=== PATIENT | female | born 1995 | race Two or more races ===

== ENCOUNTER 2021-07-06 10:50 | Emergency (ER) | payer OTHER ==
[~2021-07-06] VITALS: Ht 157.5 cm; Wt 86.2 kg
[2021-07-06 11:39] LABS: Basophils # (auto) 0 10 ^3/uL (0-0.2); Basophils % (auto) 0.3 % (0.0-2.0); Eosinophils # (auto) 0 10 ^3/uL (0-0.8); Eosinophils % (auto) 0.3 % (0.0-7.0); Hematocrit 40.6 % (36.0-46.0); Hemoglobin 13.5 g/dL (12.2-16.2); Lymphocytes # (auto) 2.2 10 ^3/uL (0.4-5.4); Lymphocytes % (auto) 18.2 % (10.0-50.0); Mean Corpuscular Hemoglobin 30.9 pg (28.0-32.0); Mean Corpuscular Hgb Conc. 33.2 g/dL (32.0-36.0); Monocytes # (auto) 0.6 10 ^3/uL (0-1.3); Monocytes % (auto) 4.8 % (0.0-12.0); Neutrophils # (auto) 9.4 10 ^3/uL (1.6-8.6); Neutrophils % (auto) 76.4 % (37.0-80.0); Red Blood Cells 4.36 10^6/uL (4.0-5.20); Red Cell Distribution Width 13.5 % (11.8-14.3); White Blood Cell 12.3 10^3/uL (4.4-10.8)
[2021-07-06] MEDS: ONDANSETRON HCL 4 MG/2 ML VIAL IV ONE (11:44)
[2021-07-06] MEDS: SODIUM CHLORIDE 0.9% 1,000 ML IV ONE (11:44)
[2021-07-06] MEDS: MORPHINE SULFATE 4 MG/ML SYR/VIAL IV ONE ×2 (11:44→13:31)
[2021-07-06 12:17] LABS: Albumin 3.4 g/dL (3.4-5.0); Calcium 8.9 mg/dL (8.5-10.1); Potassium 3.4 mmol/L (3.5-5.1)
[2021-07-06 12:19] LABS: BUN/Creatinine Ratio 12.1; Bilirubin, Total 0.4 mg/dL (0.2-1.0); Total Protein 7.7 g/dL (6.4-8.2)
[2021-07-06 14:11] LABS: Urine Bacteria NONE SEEN /hpf (None Seen); Urine Blood Negative /uL (Negative); Urine Hyaline Cast FEW /lpf (0 - 2); Urine Mucus FEW (None Seen); Urine Specific Gravity 1.013 (1.001-1.035); Urine WBC 2 /hpf (0 - 5)
[2021-07-06 15:11] VITALS: BP 106/64
== END 2021-07-06 15:23 | disposition home or self-care (01) ==
LOC: ER 10:50
DX: O26.891 Other specified pregnancy related conditions, first trimester (principal); R10.11 Right upper quadrant pain; Z3A.09 9 weeks gestation of pregnancy
CPT/HCPCS: 36415; 76705; 80053; 81001; 82150; 83690; 84702; 85025; 96361; 96374; 96375; 96376; 99285; J2270; J2405; J7030

== ENCOUNTER 2021-07-06 22:44 | Emergency (ER) | payer OTHER ==
[~2021-07-06] VITALS: Ht 157.5 cm; Wt 86.2 kg
[2021-07-07 01:11] LABS: Basophils # (auto) 0 10 ^3/uL (0-0.2); Basophils % (auto) 0.1 % (0.0-2.0); Eosinophils # (auto) 0 10 ^3/uL (0-0.8); Hemoglobin 12.6 g/dL (12.2-16.2); Lymphocytes # (auto) 0.6 10 ^3/uL (0.4-5.4); Lymphocytes % (auto) 3.4 % (10.0-50.0); Monocytes # (auto) 0.4 10 ^3/uL (0-1.3); Monocytes % (auto) 2.5 % (0.0-12.0); Neutrophils # (auto) 16.1 10 ^3/uL (1.6-8.6); Red Blood Cells 4.03 10^6/uL (4.0-5.20); White Blood Cell 17.2 10^3/uL (4.4-10.8)
[2021-07-07 01:12] LABS: Hematocrit 37.5 % (36.0-46.0); Mean Corpuscular Hemoglobin 31.3 pg (28.0-32.0); Mean Corpuscular Hgb Conc. 33.6 g/dL (32.0-36.0); Mean Corpuscular Volume 93.1 fL (80.0-100.0); Red Cell Distribution Width 13.2 % (11.8-14.3)
[2021-07-07 01:13] LABS: Urine Bacteria NONE SEEN /hpf (None Seen); Urine Blood Negative /uL (Negative); Urine Mucus MODERATE (None Seen); Urine Specific Gravity 1.031 (1.001-1.035); Urine WBC 7 /hpf (0 - 5)
[2021-07-07 01:40] LABS: Albumin 3.3 g/dL (3.4-5.0); Calcium 8.5 mg/dL (8.5-10.1); Magnesium 2.6 mg/dL (1.6-2.6); Potassium 3.6 mmol/L (3.5-5.1)
[2021-07-07] MEDS ORDERED: FAMOTIDINE (10MG/ML) 2ML VL IV ONE (01:45)
[2021-07-07] MEDS ORDERED: LIDOCAINE VISCOUS 2% 15ML UD PO ONE (01:45)
[2021-07-07] MEDS ORDERED: SUCRALFATE 1 GM/10 ML ORAL SUSP PO ONE (01:45)
[2021-07-07] MEDS ORDERED: SODIUM CHLORIDE 0.9% 1,000 ML IV ONE (01:45)
[2021-07-07 01:47] LABS: Bilirubin, Total 0.5 mg/dL (0.2-1.0); Total Protein 7.5 g/dL (6.4-8.2)
[2021-07-07] MEDS ORDERED: ACETAMINOPHEN 500 MG TAB PO ONE (05:15)
[2021-07-07] MEDS ORDERED: cefTRIAXone 1GM/50ML D5W 50 ML IV ONE ×2 (05:45→09:15)
[2021-07-07 09:15] VITALS: BP 122/68
== END 2021-07-07 09:07 | disposition home or self-care (01) ==
LOC: ER 22:44
DX: O23.41 Unspecified infection of urinary tract in pregnancy, first trimester (principal); Z3A.01 Less than 8 weeks gestation of pregnancy
CPT/HCPCS: 36415; 76700; 76801; 80053; 81001; 81025; 82150; 83605; 83690; 83735; 84484; 84702; 85025; 87086; 93005; 96361; 96365; 96375; 99285; J0696; J3490; J7030

== ENCOUNTER 2021-07-21 03:37 | Emergency (ER) | payer OTHER ==
[~2021-07-21] VITALS: Ht 157.5 cm; Wt 86.2 kg
[2021-07-21 03:42] VITALS: BP 147/93
[2021-07-21 05:02] LABS: Basophils # (auto) 0 10 ^3/uL (0-0.2); Basophils % (auto) 0.4 % (0.0-2.0); Eosinophils # (auto) 0.1 10 ^3/uL (0-0.8); Hematocrit 37.8 % (36.0-46.0); Hemoglobin 12.9 g/dL (12.2-16.2); Lymphocytes # (auto) 2.4 10 ^3/uL (0.4-5.4); Lymphocytes % (auto) 23.7 % (10.0-50.0); Mean Corpuscular Hemoglobin 31.4 pg (28.0-32.0); Mean Corpuscular Volume 92.2 fL (80.0-100.0); Monocytes # (auto) 0.6 10 ^3/uL (0-1.3); Monocytes % (auto) 5.7 % (0.0-12.0); Neutrophils % (auto) 69.2 % (37.0-80.0); Red Blood Cells 4.11 10^6/uL (4.0-5.20); Red Cell Distribution Width 12.9 % (11.8-14.3); White Blood Cell 10.1 10^3/uL (4.4-10.8)
[2021-07-21 05:19] LABS: INR 0.97 (0.9-1.15); Partial Thromboplastin Time 25.6 sec (23.6-33.0)
[2021-07-21 05:20] LABS: Albumin 3.4 g/dL (3.4-5.0); Calcium 9.5 mg/dL (8.5-10.1)
[2021-07-21 05:22] LABS: BUN/Creatinine Ratio 26.7
[2021-07-21 05:25] LABS: Bilirubin, Total 0.4 mg/dL (0.2-1.0)
[2021-07-21 05:57] LABS: Urine Bacteria FEW /hpf (None Seen); Urine Blood 3+ /uL (Negative); Urine Specific Gravity 1.006 (1.001-1.035); Urine WBC 3 /hpf (0 - 5)
== END 2021-07-21 13:00 | disposition home or self-care (01) ==
LOC: ER 03:37
DX: O46.91 Antepartum hemorrhage, unspecified, first trimester (principal); Z3A.11 11 weeks gestation of pregnancy
CPT/HCPCS: 36415; 76801; 80053; 81001; 84702; 85025; 85610; 85730; 86850; 86900; 86901

== ENCOUNTER 2021-07-30 05:01 | Emergency (ER) | payer OTHER ==
[~2021-07-30] VITALS: Ht 157.5 cm; Wt 86.2 kg
[2021-07-30 06:22] LABS: Basophils # (auto) 0 10 ^3/uL (0-0.2); Basophils % (auto) 0.3 % (0.0-2.0); Eosinophils # (auto) 0.1 10 ^3/uL (0-0.8); Eosinophils % (auto) 0.7 % (0.0-7.0); Hematocrit 37.8 % (36.0-46.0); Hemoglobin 12.9 g/dL (12.2-16.2); Lymphocytes # (auto) 2.5 10 ^3/uL (0.4-5.4); Lymphocytes % (auto) 24.2 % (10.0-50.0); Mean Corpuscular Hemoglobin 31.6 pg (28.0-32.0); Mean Corpuscular Volume 92.7 fL (80.0-100.0); Monocytes # (auto) 0.3 10 ^3/uL (0-1.3); Monocytes % (auto) 3.2 % (0.0-12.0); Neutrophils # (auto) 7.4 10 ^3/uL (1.6-8.6); Neutrophils % (auto) 71.6 % (37.0-80.0); Nucleated Red Blood Cells % 0.2 %; Red Blood Cells 4.08 10^6/uL (4.0-5.20); White Blood Cell 10.3 10^3/uL (4.4-10.8)
[2021-07-30 06:31] LABS: Albumin 3.3 g/dL (3.4-5.0); Calcium 8.9 mg/dL (8.5-10.1); Potassium 3.8 mmol/L (3.5-5.1)
[2021-07-30 06:35] LABS: INR 0.97 (0.9-1.15); Partial Thromboplastin Time 22.8 sec (23.6-33.0)
[2021-07-30 06:36] LABS: BUN/Creatinine Ratio 15.4; Bilirubin, Total 0.4 mg/dL (0.2-1.0); Total Protein 7.3 g/dL (6.4-8.2)
[2021-07-30] MEDS ORDERED: SODIUM CHLORIDE 0.9% 500 ML IVB ONE (07:30)
[2021-07-30] MEDS ORDERED: SODIUM CHLORIDE 0.9% 1,000 ML IV ONE (07:30)
[2021-07-30 09:06] VITALS: BP 111/77
[2021-07-30 09:20] LABS: Urine Bacteria FEW /hpf (None Seen); Urine Blood 3+ /uL (Negative); Urine Mucus MODERATE (None Seen); Urine Specific Gravity 1.023 (1.001-1.035); Urine Sperm PRESENT /hpf (None Seen); Urine WBC 33 /hpf (0 - 5)
== END 2021-07-30 11:10 | disposition home or self-care (01) ==
LOC: ER 05:01
DX: O23.41 Unspecified infection of urinary tract in pregnancy, first trimester (principal); O46.91 Antepartum hemorrhage, unspecified, first trimester; Z3A.12 12 weeks gestation of pregnancy
CPT/HCPCS: 36415; 76801; 80053; 81001; 84702; 85025; 85610; 85730; 96360; 96361; 99284; J7030; J7040

== ENCOUNTER → 2024-04-03 | Outpatient (CLI) | payer MEDICAID ==
[2024-04-03 07:15] LABS: Basophils # (auto) 0 10 ^3/uL (0-0.2); Basophils % (auto) 0.4 % (0.0-2.0); Eosinophils # (auto) 0.1 10 ^3/uL (0-0.8); Eosinophils % (auto) 1.4 % (0.0-7.0); Hematocrit 40.5 % (36.0-46.0); Lymphocytes # (auto) 2.4 10 ^3/uL (0.4-5.4); Mean Corpuscular Hemoglobin 32.1 pg (28.0-32.0); Mean Corpuscular Hgb Conc. 34.5 g/dL (32.0-36.0); Monocytes # (auto) 0.4 10 ^3/uL (0-1.3); Monocytes % (auto) 5.9 % (0.0-12.0); Neutrophils # (auto) 4.2 10 ^3/uL (1.6-8.6); Neutrophils % (auto) 58.3 % (37.0-80.0); Nucleated Red Blood Cells % 0.1 %; Platelet Count (auto) 247 10^3/uL (140-450); Red Blood Cells 4.35 10^6/uL (4.0-5.20); Red Cell Distribution Width 14.8 % (11.8-14.3); White Blood Cell 7.1 10^3/uL (4.4-10.8)
[2024-04-03 07:37] LABS: Alanine Aminotransferase 71 U/L (7-40); Albumin 4.1 g/dL (3.2-4.8); Alkaline Phosphatase 87 U/L (46-116); Anion Gap 7 (5-15); Aspartate Aminotransferase 20 U/L (13-40); Blood Urea Nitrogen 11 mg/dL (9-23); Calcium 9.4 mg/dL (8.7-10.4); Carbon Dioxide 25 mmol/L (20-30); Chloride 106 mmol/L (98-107); Cholesterol 166 mg/dL (< 200); Glucose 81 mg/dL (74-106); HDL Cholesterol 35 mg/dL (40-59); LDL Cholesterol 117 mg/dL (< 100); Potassium 3.9 mmol/L (3.5-5.1); Sodium 138 mmol/L (136-145); Triglycerides 102 mg/dL (< 150)
[2024-04-03 07:38] LABS: Bilirubin, Total 0.6 mg/dL (0.2-1.0); Total Protein 6.6 g/dL (5.7-8.2)
== END | disposition home or self-care (01) ==
LOC: LAB 06:40
PROVIDERS: ATTEND Nurse Practitioner Family
DX: I10 Essential (primary) hypertension (principal); E66.9 Obesity, unspecified
CPT/HCPCS: 36415; 80053; 80061; 82306; 84443; 85025

== ENCOUNTER 2024-06-08 22:54 | Inpatient (IN) | payer MEDICAID ==
[~2024-06-08] VITALS: Ht 154.9 cm; Wt 84.8 kg
--- NOTE | 2024-06-08 23:11 | ED.PDOC ---
History of Present Illness HPI Comments 29 y/o F, with a Hx of cholelithiasis and obesity, presents with c/o non- radiating, upper abdominal pain, nausea, and vomiting, today. Patient reports on having symptoms, intermittently for 1 month, with most recent onset taking place at around 2000, this evening. Patient comments on pain having no relief as she had in the past with heat pack use and after vomiting for most current onset of symptoms. Patient also informs on being Dx with cholelithiasis when evaluated for pain in the past, with no further endorsement of relevant or pertinent Hx. Patient reports also no recent stress, injuries, sick contact, travel, spoiled food, or substance use/exposure. Denies having any hematemesis, diarrhea, constipation, urinary symptoms, fever, chills, or other associated symptoms or modifiers at this time. 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 Family History Family History: Unknown Social History Smoker: Non-Smoker Alcohol: Occasionally Drugs: Denies Drug Use Lives In: Home Constitutional: denies: chills, diaphoresis, fatigue, fever, malaise, sweats, weakness, others EENTM: denies: blurred vision, double vision, ear bleeding, ear discharge, ear drainage, ear pain, ear ringing, eye pain, eye redness, hearing loss, mouth pain, mouth swelling, nasal discharge, nose bleeding, nose congestion, nose pain, photophobia, tearing, throat pain, throat swelling, voice changes, others Respiratory: denies: cough, hemoptysis, orthopnea, SOB at rest, shortness of breath, SOB with excertion, stridor, wheezing, others Cardiovascular: denies: chest pain, dizzy spells, diaphoresis, Dyspnea on exertion, edema, irregular heart beat, left arm pain, lightheadedness, palpitations, PND, syncope, others Gastrointestinal: reports: abdominal pain, nausea, vomiting; denies: abdomen distended, blood streaked bowels, constipated, diarrhea, dysphagia, difficulty swallowing, hematemesis, melena, poor appetite, poor fluid intake, rectal bleeding, rectal pain, others Genitourinary: denies: abnormal vagina bleeding, burning, dyspareunia, dysuria, flank pain, frequency, hematuria, incontinence, pain, , vagina discharge, urgency, others Neurological: denies: dizziness, fainting, headache, left sided numbness, left sided weakness, numbness, paresthesia, pre-existing deficit, right sided numbness, right sided weakness, seizure, speech problems, tingling, tremors, weakness, others Musculoskeletal: denies: back pain, gout, joint pain, joint swelling, muscle pain, muscle stiffness, neck pain, others Integumetry: denies: bruises, change in color, change in hair/nails, dryness, laceration, lesions, lumps, rash, wounds, others Allergic/Immunocompromised: denies: Difficulty Healing, Frequent Infections, Hives, Itching, others Hematologic/Lymphatic: denies: anemia, blood clots, easy bleeding, easy bruising, swollen glands, others Endocrine: denies: excessive hunger, excessive sweating, excessive thirst, excessive urination, flushing, intolerance to cold, intolerance to heat, unexplained weight gain, unexplained weight loss, others Psychiatric: denies: anxiety, bipolar disorder, depression, hopeless, panic disorder, schizophrenia, sleepless, suicidal, others All Other Systems: Reviewed and Negative Physical Exam General Appearance: Moderate Distress, Normal HEENT: Normal ENT Inspection, Pharynx Normal, TMs Normal Neck: Full Range of Motion, Non-Tender, Normal, Normal Inspection Respiratory: Chest Non-Tender, Lungs Clear, No Accessory Muscle Use, No Respiratory Distress, Normal Breath Sounds Cardiovascular: No Edema, No JVD, No Murmur, No Gallop, Normal Peripheral Pulses, Regular Rate/Rhythm Breast Exam: Deferred Gastrointestinal: Epigastric, No Pulsatile Mass, Normal Bowel Sounds, Soft, Tenderness Genitalia: Deferred Pelvic: Deferred Rectal: Deferred Extremities: No calf tenderness, Normal capillary refill, Normal inspection, Normal range of motion, Non-tender, No pedal edema Musculoskeletal : Apperance: Normal Neurologic: Alert, facsimile operator II-XII nml as Tested, No Motor Deficits, Normal Affect, Normal Mood, No Sensory Deficits Cerebellar Function: Normal Reflexes: Normal Skin: Dry, Normal Color, Warm Lymphatic: No Adenopathy Was a procedure done? Was a procedure done?: No Differential Dx Considerations may include: cholelithiasis, cholecystitis, gastritis, gastroenteritis, PUD, GERD, , spoiled food X-Ray, Labs, Meds, VS Vital Signs Date Time Temp Pulse Resp B/P (MAP) Pulse Ox O2 Delivery O2 Flow Rate FiO2 06/09/24 00:18 63 12 100 Room Air* 0 21 06/09/24 00:05 97.9 63 12 118/86 (97) 100 97.9 06/08/24 22:59 97.5 64 20 128/67 (87) 100 Lab Test 06/08/24 23:10 Range/Units White Blood Count 14.7 H 4.4-10.8 10^3/uL Red Blood Count 4.58 4.0-5.20 10^6/uL Hemoglobin 14.4 12.2-16.2 g/dL Hematocrit 42.9 36.0-46.0 % Mean Corpuscular Volume 93.7 80.0-100.0 fL Mean Corpuscular Hemoglobin 31.3 28.0-32.0 pg Mean Corpuscular Hemoglobin Concent 33.4 32.0-36.0 g/dL Red Cell Distribution Width 12.6 11.8-14.3 % Platelet Count 312 140-450 10^3/uL Mean Platelet Volume 7.9 6.9-10.8 fL Neutrophils (%) (Auto) 80.7 H 37.0-80.0 % Lymphocytes (%) (Auto) 15.6 10.0-50.0 % Monocytes (%) (Auto) 3.1 0.0-12.0 % Eosinophils (%) (Auto) 0.3 0.0-7.0 % Basophils (%) (Auto) 0.3 0.0-2.0 % Neutrophils # (Auto) 11.9 H 1.6-8.6 10 ^3/uL Lymphocytes # (Auto) 2.3 0.4-5.4 10 ^3/uL Monocytes # (Auto) 0.5 0-1.3 10 ^3/uL Eosinophils # (Auto) 0 0-0.8 10 ^3/uL Basophils # (Auto) 0 0-0.2 10 ^3/uL Nucleated Red Blood Cells 0.0 % Sodium Level 138 136-145 mmol/L Potassium Level 3.5 3.5-5.1 mmol/L Chloride Level 105 98-107 mmol/L Carbon Dioxide Level 21 20-31 mmol/L Anion Gap 12 5-15 Blood Urea Nitrogen 17 9-23 mg/dL Creatinine 0.69 0.550-1.02 mg/dL Glomerular Filtration Rate Calc 120 >90 mL/min BUN/Creatinine Ratio 24.6 H 10.0-20.0 Serum Glucose 141 H 74-106 mg/dL Calcium Level 9.6 8.7-10.4 mg/dL Total Bilirubin 0.5 0.2-1.0 mg/dL Aspartate Amino Transferase (AST) 15 13-40 U/L Alanine Aminotransferase (ALT) 19 7-40 U/L Alkaline Phosphatase 71 46-116 U/L Total Protein 7.4 5.7-8.2 g/dL Albumin 4.5 3.2-4.8 g/dL Lipase 50 12-53 U/L Beta HCG, Quantitative 1.6 1.5-4.2 mIU/mL Current Medications Medications (Trade) Dose Ordered Sig/Mehul Route Start Time Stop Time Status Last Admin Ondansetron HCl (Zofran Po) 8 mg ONCE ONCE PO 06/08/24 23:15 06/08/24 23:16 DC 06/09/24 00:06 Time of 1ST Reevaluation: 23:30 Reevaluation 1ST: Unchanged Time of 2ND Reevaluation: 00:22 Reevaluation 2ND: Unchanged Patient Education/Counseling: Diagnosis, Treatment Family Education/Counseling: No Family Present Departure 1 Departure Time of Disposition: 00:21 Impression: Primary Impression: Cholecystitis Disposition: 09 ADMITTED INPATIENT Condition: Guarded Discharged With: Self Critical Care Note Critical Care Time?: No Stability Stability form required: No Heart Score Heart Score: Heart Score Response (Comments) Value History N/A 0 EKG N/A 0 Age N/A 0 Risk Factors N/A 0 Troponin N/A 0 Total 0 I personally scribed for CAL PACHECO MD ([email or web address]) on 06/08/24 at 23:11. Electronically submitted by Bulmaro Carlos [email or web address]). CAL PACHECO MD Jun 08, 2024 23:11
[2024-06-08] MEDS ORDERED: HYDROcodone-ACET 10/325MG TAB PO ONE (23:15)
[2024-06-08] MEDS ORDERED: FAMOTIDINE 20 MG TAB PO ONE (23:15)
[2024-06-08 23:27] LABS: Basophils # (auto) 0 10 ^3/uL (0-0.2); Basophils % (auto) 0.3 % (0.0-2.0); Eosinophils # (auto) 0 10 ^3/uL (0-0.8); Eosinophils % (auto) 0.3 % (0.0-7.0); Hematocrit 42.9 % (36.0-46.0); Hemoglobin 14.4 g/dL (12.2-16.2); Lymphocytes # (auto) 2.3 10 ^3/uL (0.4-5.4); Lymphocytes % (auto) 15.6 % (10.0-50.0); Mean Corpuscular Hemoglobin 31.3 pg (28.0-32.0); Mean Corpuscular Hgb Conc. 33.4 g/dL (32.0-36.0); Mean Corpuscular Volume 93.7 fL (80.0-100.0); Monocytes # (auto) 0.5 10 ^3/uL (0-1.3); Monocytes % (auto) 3.1 % (0.0-12.0); Neutrophils # (auto) 11.9 10 ^3/uL (1.6-8.6); Neutrophils % (auto) 80.7 % (37.0-80.0); Platelet Count (auto) 312 10^3/uL (140-450); Red Blood Cells 4.58 10^6/uL (4.0-5.20); Red Cell Distribution Width 12.6 % (11.8-14.3); White Blood Cell 14.7 10^3/uL (4.4-10.8)
[2024-06-08 23:45] LABS: Alanine Aminotransferase 19 U/L (7-40); Albumin 4.5 g/dL (3.2-4.8); Alkaline Phosphatase 71 U/L (46-116); Anion Gap 12 (5-15); Aspartate Aminotransferase 15 U/L (13-40); BUN/Creatinine Ratio 24.6 (10.0-20.0); Bilirubin, Total 0.5 mg/dL (0.2-1.0); Blood Urea Nitrogen 17 mg/dL (9-23); Calcium 9.6 mg/dL (8.7-10.4); Carbon Dioxide 21 mmol/L (20-31); Chloride 105 mmol/L (98-107); Glucose 141 mg/dL (74-106); Lipase 50 U/L (12-53); Potassium 3.5 mmol/L (3.5-5.1); Sodium 138 mmol/L (136-145); Total Protein 7.4 g/dL (5.7-8.2)
[2024-06-09] MEDS: ONDANSETRON ODT 4 MG TAB PO ONE (00:06)
--- NOTE | 2024-06-09 00:11 | DVH ---
INDICATION: epigastric pain, h/o gallstones TECHNIQUE: Multiple real-time sonographic images were obtained of the right upper quadrant. COMPARISON: GALLBLADDER on DOS: 07/06/21 FINDINGS: The liver demonstrates homogeneous echotexture without focal mass lesions. The liver measu res 14 cm. There is no intrahepatic or extrahepatic ductal dilatation. The common duct measures 0.5 cm. Multiple mobile gallstones and biliary sludge within a distended gallbladder positive sonographic Mur phy's sign.. The gallbladder wall measures 0.3 cm and is within normal limits. The right kidney measures 11 cm. The right kidney is normal in contour, size, and shape. The echoge nicity is normal. There is no hydronephrosis. The pancreas is not well visualized due to overlying bowel gas. IMPRESSION: Cholelithiasis with distended gallbladder and positive sonographic pineda's sign. Findings are concer jeane for possible acute cholecystitis. Consider HIDA scan for further evaluation.
[2024-06-09 00:18] VITALS: PULSE 63; RESP 12; O2SAT 100
[2024-06-09] MEDS: ONDANSETRON HCL 4 MG/2 ML VIAL IV ONE (00:53)
[2024-06-09] MEDS: SODIUM CHLORIDE 0.9% 1,000 ML IV ONE (00:55)
[2024-06-09] MEDS: PIPERACILLIN-TAZOB 3.375GM 100 ML IV ONE (01:01)
[2024-06-09] MEDS: METOCLOPRAMIDE HCL 5MG/ml INJ 2ml VIAL IV ONE (01:21)
[2024-06-09] MEDS: diphenhdrAMINE HCL 50 MG/1 ML VL IV ONE (01:21)
[2024-06-09] MEDS: HYDROmorphone HCL 2 MG/ML VL/or syr IV ONE (01:44)
[2024-06-09] MEDS: SODIUM CHLORIDE 0.9% 1,000 ML IV SCH (03:30)
--- NOTE | 2024-06-09 05:09 | DVHHP2 ---
History of Present Illness Reason for Visit: Abdominal pain History of Present Illness 29-year-old female presents for evaluation of abdominal pain. Patient with a history of cholelithiasis presents with a three day history of sharp nonradiating epigastric pain with associated nausea and vomiting. Denies diarrhea, fever or chills. No other acute complaints were reported. Past Medical History Gallstones Past Surgical History Denies Family History Noncontributory Smoke: No ALCOHOL: none Drugs: None Lives: with Family Review of Systems Review of Systems Review of systems are currently negative otherwise addressed in HPI. Allergies: Coded Allergies: NO KNOWN ALLERGIES (Unverified , 07/06/21) Medications Current Medications Medications Dose Ordered Sig/Mehul Route Start Time Stop Time Status Last Admin Dose Admin Ondansetron HCl 4 mg Q4HP PRN IV 06/09/24 03:30 Morphine Sulfate 2 mg Q4HPRN PRN IV 06/09/24 03:30 Sodium Chloride 1,000 ml @ 85 mls/hr [id number] IV 06/09/24 03:30 Exam Vital Signs Vital Signs Date Time Temp Pulse Resp B/P (MAP) Pulse Ox O2 Delivery O2 Flow Rate FiO2 06/09/24 01:44 63 12 118/86 06/09/24 00:57 97.9 100 97.9 06/09/24 00:18 Room Air* 0 21 Exam Gen: 29-year-old female in mild distress Skin: Warm, dry, normal color and texture, no rash. HEENT: Normocephalic atraumatic, mucous membranes moist and pink. Neck: Cervical and supraclavicular nodes normal without enlargement, trachea is midline, thyroid gland is normal without masses. Pulmonary: Clear to auscultation and percussion bilaterally. Cardiac: Regular rate and rhythm. No murmur Abdomen: Soft, epigastric tenderness, nondistended, bowel sounds present all 4 quadrants, no guarding, no rigidity, no organomegaly. Extremities: No cyanosis, clubbing, no edema Neuro: Cranial nerves II through XII grossly intact, normal affect and speech, no focal motor deficits. Labs/Xrays ORDERING PHYSICIAN: CAL PACHECO MD PROCEDURE(s): GBUS - GALLBLADDER REASON: epigastric pain, h/o gallstones ORDER NUMBER(s): [id number], ACCESSION NUMBER(s): [id number] INDICATION: epigastric pain, h/o gallstones TECHNIQUE: Multiple real-time sonographic images were obtained of the right upper quadrant. COMPARISON: GALLBLADDER on DOS: 07/06/21 FINDINGS: The liver demonstrates homogeneous echotexture without focal mass lesions. The liver measures 14 cm. There is no intrahepatic or extrahepatic ductal dilatation. The common duct measures 0.5 cm. Multiple mobile gallstones and biliary sludge within a distended gallbladder p ositive sonographic Myers's sign.. The gallbladder wall measures 0.3 cm and is within normal limits. The right kidney measures 11 cm. The right kidney is normal in contour, size, and shape. The echogenicity is normal. There is no hydronephrosis. The pancreas is not well visualized due to overlying bowel gas. IMPRESSION: Cholelithiasis with distended gallbladder and positive sonographic myers's sign. Findings are concerning for possible acute cholecystitis. Consider HIDA scan for further evaluation. ATED BY: ELMER MCMILLAN DO Labs Test 06/08/24 23:10 Range/Units White Blood Count 14.7 H 4.4-10.8 10^3/uL Red Blood Count 4.58 4.0-5.20 10^6/uL Hemoglobin 14.4 12.2-16.2 g/dL Hematocrit 42.9 36.0-46.0 % Mean Corpuscular Volume 93.7 80.0-100.0 fL Mean Corpuscular Hemoglobin 31.3 28.0-32.0 pg Mean Corpuscular Hemoglobin Concent 33.4 32.0-36.0 g/dL Red Cell Distribution Width 12.6 11.8-14.3 % Platelet Count 312 140-450 10^3/uL Mean Platelet Volume 7.9 6.9-10.8 fL Neutrophils (%) (Auto) 80.7 H 37.0-80.0 % Lymphocytes (%) (Auto) 15.6 10.0-50.0 % Monocytes (%) (Auto) 3.1 0.0-12.0 % Eosinophils (%) (Auto) 0.3 0.0-7.0 % Basophils (%) (Auto) 0.3 0.0-2.0 % Neutrophils # (Auto) 11.9 H 1.6-8.6 10 ^3/uL Lymphocytes # (Auto) 2.3 0.4-5.4 10 ^3/uL Monocytes # (Auto) 0.5 0-1.3 10 ^3/uL Eosinophils # (Auto) 0 0-0.8 10 ^3/uL Basophils # (Auto) 0 0-0.2 10 ^3/uL Nucleated Red Blood Cells 0.0 % Sodium Level 138 136-145 mmol/L Potassium Level 3.5 3.5-5.1 mmol/L Chloride Level 105 98-107 mmol/L Carbon Dioxide Level 21 20-31 mmol/L Anion Gap 12 5-15 Blood Urea Nitrogen 17 9-23 mg/dL Creatinine 0.69 0.550-1.02 mg/dL Glomerular Filtration Rate Calc 120 >90 mL/min BUN/Creatinine Ratio 24.6 H 10.0-20.0 Serum Glucose 141 H 74-106 mg/dL Calcium Level 9.6 8.7-10.4 mg/dL Total Bilirubin 0.5 0.2-1.0 mg/dL Aspartate Amino Transferase (AST) 15 13-40 U/L Alanine Aminotransferase (ALT) 19 7-40 U/L Alkaline Phosphatase 71 46-116 U/L Total Protein 7.4 5.7-8.2 g/dL Albumin 4.5 3.2-4.8 g/dL Lipase 50 12-53 U/L Beta HCG, Quantitative 1.6 1.5-4.2 mIU/mL Assessment/Plan Assessment/Plan Assessment Acute abdominal pain Acute cholecystitis Leukocytosis Plan Admit the patient to [facility] to the hospitalist DELICIA cheney pending Surgical consult NPO Pain management Continue treatment per orders. Plan discussed with: Patient My Orders Orders - MARS SEARS Procedure Category Date Status Time * Surgical Consult CONS 06/09/24 Transmitted Admit ADMIT 06/09/24 Transmitted 03:22 Ondansetron Hcl PHA 06/09/24 In Process (Zofran) 03:30 Complete Blood Count LAB 06/10/24 Verified 04:00 Comprehensive LAB 06/10/24 Verified Metabolic Panel 04:00 Npo (Nothing By DIET 06/09/24 Transmitted Mouth) Diet Breakfast Condition: Stable FAISAL 06/09/24 In Process 03:22 Bedrest With Bathroom FAISAL 06/09/24 In Process Privileg 03:22 Morphine Sulfate PHA 06/09/24 In Process Injection 03:30 Sodium Chloride 0.9% PHA 06/09/24 In Process 03:30 Nm Hida Scan NM 06/09/24 Logged 03:22 Date of Service: Jun 09, 2024 Billing Provider: MARS SEARS Common Visit Codes: [id number] INP/OBS CARE (HIGH) MARS SEARS Jun 09, 2024 05:09
[2024-06-09 06:50] VITALS: RESP 13; O2SAT 100
[2024-06-09] MEDS: ONDANSETRON HCL 4 MG/2 ML VIAL IV PRN (07:37)
[2024-06-09] MEDS: MORPHINE SULFATE INJ 2 MG/ml SYRG IV PRN (07:38)
[2024-06-09 08:55] LABS: Urine Bacteria FEW /hpf (None Seen); Urine Blood Negative /uL (Negative); Urine Clarity Turbid (Clear); Urine Color Light-Yellow (Yellow); Urine Mucus FEW (None Seen); Urine Protein, UAD TRACE (Negative); Urine Urobilinogen Normal (Negative); Urine WBC 3 /hpf (0 - 5)
[2024-06-09 09:51] VITALS: PULSE 66; RESP 20; O2SAT 96
--- NOTE | 2024-06-09 10:29 | DVHINCON2 ---
Date of service: Jun 09, 2024 Reason for Consultation cholelithiasis History of Present Illness History Source: Patient, RN Notes, MD Notes Exam Limitations: No limitations HPI 29 year old female with history of gallstones, patient states she has had sharp epigastric and right upper quadrant pain for the past few days associated with nausea and vomiting. Chief Complaint of Abdominal/F: Abdominal pain, Vomiting Onset/Duration of Abd/Flank Pa: Persistent Quality of Abd/Flank Pain: Sharpness Location of Abdominal Onset: RUQ Abdominal Pain Radiation: Back Past Medical History Cardiac: No pertinent Hx Pulmonary: No pertinent Hx Central Nervous System: No pertinent Hx GI: No pertinent Hx Hemotology/Oncology: No pertinent Hx Hepatobiliary: No pertinent Hx Psychiatric: No pertinent Hx Musculoskeletal: No pertinent Hx Rheumotologic: No pertinent Hx Infectious Disease: No peritnent Hx ENT: No pertinent Hx Renal/: No pertinent Hx Endocrine: No pertinent Hx Dermatology: No pertinent Hx Past Surgical History: No pertinent Hx Family History: No pertinent Hx Smoker: No Hx (Negative) Alocohol: None Drugs: None Review of Systems Constitutional: No symptom reported Ears, Nose, & Throat: No symptom reported Eyes: No symptom reported Pulmonary/Respiratory: No symptom reported Cardiovascular: No symptom reported Gastrointestinal: Abdominal Pain Genitourinary: No symptom reported Musculoskeletal: No symptom reported Skin: No symptom reported Psychiatric: No symptom reported Endocrine: No symptom reported Hemotologic/Lymphatic: No symptom reported H&P Exam Vital Signs Vital Signs Date Time Temp Pulse Resp B/P (MAP) Pulse Ox O2 Delivery O2 Flow Rate FiO2 06/09/24 09:51 66 20 96 Room Air* 0 21 06/09/24 09:37 98.0 136/91 (106) 98.0 General Appeara: Well developed, Well nourished Head Exam: Normal inspection Neck Exam: Normal inspection Nasal Exam: Normal inspection Mouth: Normal Inspection Pulmonary/Respiratory: Normal inspection Abdominal Exam: Normal bowel sounds Abdominal Pain Onset Location: Epigastric Tendon/ Neuro: Normal sensation, Normal motor function Neuro/Mental St: Alert, Oriented Appearance: Appropriate appearance, Appropriate insight Eye contact/ Speech: Cooperative, Good eye contact, Normal speech Skin Exam: Normal inspection, Normal color, Warm/dry Labs/Xrays Labs Test 06/09/24 09:51 06/09/24 06:00 06/08/24 23:10 Range/Units Urine Color Light-yellow Yellow Urine Clarity Turbid H Clear Urine pH 7.0 5.0-9.0 Urine Specific [place] 1.030 1.001-1.035 Urine Protein Trace H Negative Urine Ketones 4+ H Negative Urine Blood Negative Negative /uL Urine Nitrite Negative Negative Urine Bilirubin Negative Negative Urine Urobilinogen Normal Negative mg/dL Urine Leukocyte Esterase 2+ Negative /uL Urine RBC 1 0 - 4 /hpf Urine WBC 3 0 - 5 /hpf Urine Squamous Epithelial Cells Few <5 /hpf Urine Bacteria Few H None Seen /hpf Urine Mucus Few None Seen Urine Glucose 1+ H Normal mg/dL White Blood Count 14.7 H 4.4-10.8 10^3/uL Red Blood Count 4.58 4.0-5.20 10^6/uL Hemoglobin 14.4 12.2-16.2 g/dL Hematocrit 42.9 36.0-46.0 % Mean Corpuscular Volume 93.7 80.0-100.0 fL Mean Corpuscular Hemoglobin 31.3 28.0-32.0 pg Mean Corpuscular Hemoglobin Concent 33.4 32.0-36.0 g/dL Red Cell Distribution Width 12.6 11.8-14.3 % Platelet Count 312 140-450 10^3/uL Mean Platelet Volume 7.9 6.9-10.8 fL Neutrophils (%) (Auto) 80.7 H 37.0-80.0 % Lymphocytes (%) (Auto) 15.6 10.0-50.0 % Monocytes (%) (Auto) 3.1 0.0-12.0 % Eosinophils (%) (Auto) 0.3 0.0-7.0 % Basophils (%) (Auto) 0.3 0.0-2.0 % Neutrophils # (Auto) 11.9 H 1.6-8.6 10 ^3/uL Lymphocytes # (Auto) 2.3 0.4-5.4 10 ^3/uL Monocytes # (Auto) 0.5 0-1.3 10 ^3/uL Eosinophils # (Auto) 0 0-0.8 10 ^3/uL Basophils # (Auto) 0 0-0.2 10 ^3/uL Nucleated Red Blood Cells 0.0 % Sodium Level 138 136-145 mmol/L Potassium Level 3.5 3.5-5.1 mmol/L Chloride Level 105 98-107 mmol/L Carbon Dioxide Level 21 20-31 mmol/L Anion Gap 12 5-15 Blood Urea Nitrogen 17 9-23 mg/dL Creatinine 0.69 0.550-1.02 mg/dL Glomerular Filtration Rate Calc 120 >90 mL/min BUN/Creatinine Ratio 24.6 H 10.0-20.0 Serum Glucose 141 H 74-106 mg/dL Calcium Level 9.6 8.7-10.4 mg/dL Total Bilirubin 0.5 0.2-1.0 mg/dL Aspartate Amino Transferase (AST) 15 13-40 U/L Alanine Aminotransferase (ALT) 19 7-40 U/L Alkaline Phosphatase 71 46-116 U/L Total Protein 7.4 5.7-8.2 g/dL Albumin 4.5 3.2-4.8 g/dL Lipase 50 12-53 U/L Beta HCG, Quantitative 1.6 1.5-4.2 mIU/mL Assessment/Plan Plan positive Myers sign , patient has had pain for the past 3 days associated wit h nausea. patient also states similar pain in the past and was diagnosed with gallstones. Ultrasound Cholelithiasis with distended gallbladder and positive sonographic Myers's sign, labs and notes reviewed. operation was explained to patient at bedside in the ER. All risks and complications explained in detail, all questions answered. Patient would like to proceed with surgery. Tomorrow am Laparoscopic possibly open cholecystectomy Plan discussed with: Patient Visit Coding Surgery Date of Service if different f: Jun 09, 2024 Billing Provider: RAVEN ZARATE MD Surgery Visit Codes: [id number] - INP CONSULT <80 MIN MARY CARLSON NP Jun 09, 2024 10:29
[2024-06-09 10:31] LABS: INR 1.07 (0.9-1.15); Partial Thromboplastin Time 25.7 SEC (24.5-34.5); Prothrombin Time 11.3 sec (9.3-11.8)
--- NOTE | 2024-06-09 13:59 | DVHPN2 ---
Subjective Patient reporting persistent abdominal pain. Reviewed: Care Plan, H&P, Labs, Medications, Previous Orders Changes from previous H/P or p: No Changes General: Per HPI Objective Vitals Vital Signs Date Time Temp Pulse Resp B/P (MAP) Pulse Ox O2 Delivery O2 Flow Rate FiO2 06/09/24 12:14 98 14 130/79 06/09/24 11:40 98.2 100 98.2 06/09/24 09:51 Room Air* 0 21 Intake/Output Intake and Output 06/09/24 07:00 Intake Total 1100 ml Balance 1100 ml Intake IV Total 1100 ml General Appearance: Alert, Oriented X3, Cooperative, mild distress HEENT: Atraumatic, PERRLA Lungs: Clear to auscultation, Normal air movement Cardiovascular: Normal S1, Normal S2 Abdomen: Normal bowel sounds, Other (Persistent right upper quadrant pain) Genitourinary: No Apparent Abnormalities Musculoskeletal: Normal sensory function, Normal motor function Psych/Mental Status: Mental status NL, Mood NL Medications Current Medications Medications Dose Ordered Sig/Mehul Route Start Time Stop Time Status Last Admin Dose Admin Ondansetron HCl 4 mg Q4HP PRN IV 06/09/24 03:30 06/09/24 11:40 4 MG Morphine Sulfate 2 mg Q4HPRN PRN IV 06/09/24 03:30 06/09/24 11:41 2 MG Potassium Chloride/Dextrose/ Sod Cl 1,000 ml @ 100 mls/hr Q10H IV 06/09/24 13:15 UNV Ceftriaxone Sodium 50 ml @ 100 mls/hr DAILY@09 IV 06/09/24 13:15 UNV Metronidazole 100 ml @ 100 mls/hr Q8HR IV 06/09/24 14:00 UNV Laboratory Results Laboratory Tests 06/08/24 23:10 Chemistry Test 06/08/24 23:10 Albumin 4.5 g/dL (3.2-4.8) Calcium Level 9.6 mg/dL (8.7-10.4) Total Protein 7.4 g/dL (5.7-8.2) Coagulation Test 06/09/24 09:51 Prothrombin Time 11.3 sec (9.3-11.8) Prothrombin Time INR 1.07 (0.9-1.15) Activated Partial Thromboplast Time 25.7 SEC (24.5-34.5) Lipid panel Test 06/08/24 23:10 Lipase 50 U/L (12-53) LFT Test 06/08/24 23:10 Alanine Aminotransferase (ALT) 19 U/L (7-40) Alkaline Phosphatase 71 U/L (46-116) Aspartate Amino Transferase (AST) 15 U/L (13-40) Total Bilirubin 0.5 mg/dL (0.2-1.0) Urinalysis Test 06/09/24 06:00 Urine Color Light-yellow (Yellow) Urine Clarity Turbid (Clear) H Urine pH 7.0 (5.0-9.0) Urine Specific [place] 1.030 (1.001-1.035) Urine Protein Trace (Negative) H Urine Ketones 4+ (Negative) H Urine Blood Negative /uL (Negative) Urine Nitrite Negative (Negative) Urine Bilirubin Negative (Negative) Urine Urobilinogen Normal mg/dL (Negative) Urine Leukocyte Esterase 2+ /uL (Negative) Urine RBC 1 /hpf (0 - 4) Urine WBC 3 /hpf (0 - 5) Urine Squamous Epithelial Cells Few /hpf (<5) Urine Bacteria Few /hpf (None Seen) H Urine Mucus Few (None Seen) Urine Glucose 1+ mg/dL (Normal) H Labs and/or images reviewed: Labs reviewed by me, Image(s) reviewed by me Assessment/Plan Assessment/Plan Impression: -acute cholecystitis -obesity -leukocytosis, rule out sepsis Plan: -surgical consultation: Plans for surgery tomorrow -start antibiotic therapy with Rocephin and Flagyl -NPO status -pain management -started IV hydration with potassium replacement -repeat labs in a.m. -PD prophylaxis Total time spent with patient discussing and formulating plan of care: 35 minutes. This medical document was created using an electronic medical record system with [employer] dictation system. Although this document has been carefully reviewed, there may still be some phonetic and typographical errors. These areas are purely typographical due to imperfections of the software programs, and do not reflect any compromise in the patient's medical care. Plan discussed with: Patient, Other (RN) My Orders Orders - LAMAR BROOKS [address] [employer] Procedure Category Date Status Time D5w/Sod Chl 0.45%/Kcl PHA 06/09/24 Logged 20meq 13:15 Ceftriaxone 1gm/50ml PHA 06/09/24 Logged D5w (Rocephin) 13:15 Metronidazole PHA 06/09/24 Logged 500mg/100ml (Flagyl 14:00 Date of Service: Jun 09, 2024 Billing Provider: LAMAR BROOKS NP Common Visit Codes: [id number] INP/OBS CARE(HIGH) LAMAR BROOKS NP Jun 09, 2024 13:59
[2024-06-09] MEDS ORDERED: METOCLOPRAMIDE HCL 5MG/ml INJ 2ml VIAL IV PRN (14:00)
[2024-06-09] MEDS: cefTRIAXone 1GM/50ML D5W 50 ML IV SCH (16:55)
[2024-06-09] MEDS: metroNIDAZOLE 500MG/100ML 100 ML IV SCH (16:55)
[2024-06-09] MEDS: D5W/SOD CHL 0.45%/KCL 20MEQ 1,000 ML IV SCH (17:30)
[2024-06-09 20:51] VITALS: BP 141/81; PULSE 66; RESP 16; TEMP 98.5; O2SAT 98
[2024-06-09 22:44] VITALS: BP 115/73; PULSE 60; RESP 16; TEMP 98.9; O2SAT 100
[2024-06-10 06:26] VITALS: BP 136/82; PULSE 57; RESP 18; TEMP 98.5; O2SAT 100
[2024-06-10 07:01] LABS: Basophils # (auto) 0 10 ^3/uL (0-0.2); Basophils % (auto) 0.3 % (0.0-2.0); Eosinophils # (auto) 0 10 ^3/uL (0-0.8); Eosinophils % (auto) 0.1 % (0.0-7.0); Hematocrit 42.3 % (36.0-46.0); Hemoglobin 14.5 g/dL (12.2-16.2); Lymphocytes # (auto) 1.6 10 ^3/uL (0.4-5.4); Lymphocytes % (auto) 12.6 % (10.0-50.0); Mean Corpuscular Hemoglobin 31.9 pg (28.0-32.0); Mean Corpuscular Hgb Conc. 34.3 g/dL (32.0-36.0); Monocytes # (auto) 0.9 10 ^3/uL (0-1.3); Neutrophils # (auto) 10.4 10 ^3/uL (1.6-8.6); Nucleated Red Blood Cells % 0.1 %; Platelet Count (auto) 258 10^3/uL (140-450); Red Blood Cells 4.55 10^6/uL (4.0-5.20); Red Cell Distribution Width 12.7 % (11.8-14.3)
[2024-06-10] MEDS ORDERED: MIDAZOLAM HCL 2MG/2ML 2ml VIAL (1mg/ml) ONE (07:21)
[2024-06-10] MEDS ORDERED: MEPERIDINE HCL (50 MG/ML) 1 ML VIAL ONE (07:21)
[2024-06-10] MEDS ORDERED: fentaNYL CITRATE 100 MCG/2 ML VL ONE (07:21)
[2024-06-10 07:33] LABS: Alanine Aminotransferase 17 U/L (7-40); Alkaline Phosphatase 59 U/L (46-116); Anion Gap 10 (5-15); Calcium 9.7 mg/dL (8.7-10.4); Carbon Dioxide 22 mmol/L (20-31); Chloride 109 mmol/L (98-107); Glucose 104 mg/dL (74-106); Potassium 3.6 mmol/L (3.5-5.1); Sodium 141 mmol/L (136-145)
[2024-06-10 07:35] LABS: Aspartate Aminotransferase 17 U/L (13-40)
[2024-06-10 07:36] LABS: BUN/Creatinine Ratio 8.9 (10.0-20.0); Blood Urea Nitrogen < 5 mg/dL (9-23)
[2024-06-10] MEDS: BUPIVACAINE W/ EPINEPH 0.5% INJ 50ML MDV IJ ONE (08:01)
[2024-06-10] MEDS: LIDOCAINE 1% HCL (LOCAL ANESTH.) INJ 20ML MDV ONE (08:02)
[2024-06-10] MEDS ORDERED: PROPOFOL 10 MG/ML 20 ML IV ONE (08:18)
[2024-06-10] MEDS ORDERED: DexAMETHasone SOD PHOS 10MG/1ML VIAL INJ ONE (08:18)
[2024-06-10] MEDS ORDERED: ONDANSETRON HCL 4 MG/2 ML VIAL ONE (08:19)
[2024-06-10] MEDS ORDERED: SUGAMMADEX 200mg/2ml Vial (100MG/ML) IV ONE (08:19)
[2024-06-10] MEDS ORDERED: ePHEDrine SULFATE 50 MG/ML AMP IV PRN (08:45)
[2024-06-10] MEDS ORDERED: hydrALAZINE HCL 20 MG/ML VL IV PRN (08:45)
[2024-06-10] MEDS ORDERED: MIDAZOLAM HCL 2MG/2ML 2ml VIAL (1mg/ml) IV PRN (08:45)
[2024-06-10] MEDS ORDERED: MORPHINE SULFATE 4 MG/ML SYR/VIAL IV PRN (08:45)
--- NOTE | 2024-06-10 08:52 | DVHOP ---
DATE OF SURGERY: 06/10/2024 PREOPERATIVE DIAGNOSES: Cholelithiasis and cholecystitis. POSTOPERATIVE DIAGNOSES: Cholelithiasis, cholecystitis, and morbid obesity. SURGEON: Tommy Barber MD TEACHER AIDE: Choco Terrell NP ANESTHESIA: General endotracheal. ANESTHESIOLOGIST: Dr. Soto. PROCEDURE: Laparoscopy, laparoscopic cholecystectomy. DESCRIPTION OF PROCEDURE: Under general endotracheal anesthesia, with the patient's skin prepped and draped, a supraumbilical incision was made and Veress needle inserted by the hanging drop technique in order to establish pneumoperitoneum to 15 mmHg pressure by insufflation with carbon dioxide. With the abdomen fully distended, the needle was removed and replaced with a 5 mm trocar port through which a 0-degree viewing laparoscope was inserted and under direct vision, 5 and 10 mm ports inserted through the right anterior axillary line at the level of the umbilicus in the subxiphoid midline skin respectively. The laparoscopy was hampered by the patient's morbid obesity; however, no obvious unexpected pathology was encountered. The gallbladder was acutely distended and acutely inflamed was grasped with a grasping forcep, placed on tension cephalad, the cystic duct and cystic artery were dissected from abundant adipose tissue and skeletonized and traced into the hepaticocystic triangle so as to minimize the potential for inadvertent injury to the common bile duct. Subsequently, the cystic duct and cystic artery were divided between metallic clips close to the gallbladder, again attempting to avoid potential injury to the common bile duct. The gallbladder was then resected from its liver bed. The gallbladder was at least 50% intrahepatic, which resulted in significant denuding of the liver parenchyma, for which reason, a 10 mm Chris-Blount drain was placed underneath the right lobe of the liver and exteriorized through the 5 mm port site on the right flank. The drain was secured with a 2-0 nylon suture. Right upper quadrant was profusely irrigated, irrigant was aspirated. Hemostasis was meticulously inspected and found to be complete. At the termination of the procedure, there was no evidence of bleeding from either the liver bed or from the port sites. The patient remained stable throughout the procedure, left the operating room following an accurate needle and sponge count. Tommy Barber MD PF TID: [id number] RECEIPT: [id number]
[2024-06-10] MEDS: HYDROmorphone HCL 2 MG/ML VL/or syr IV PRN (10:32)
--- NOTE | 2024-06-10 11:58 | DVHPN2 ---
Subjective Patient reporting persistent abdominal pain. Reviewed: Care Plan, H&P, Labs, Medications, Previous Orders Changes from previous H/P or p: No Changes General: Per HPI Objective Vitals Vital Signs Date Time Temp Pulse Resp B/P (MAP) Pulse Ox O2 Delivery O2 Flow Rate FiO2 06/10/24 10:30 64 18 119/76 (90) 99 06/10/24 08:35 Room Air 100 06/10/24 08:35 97.4 97.4 06/09/24 21:30 0 Intake/Output Intake and Output 06/10/24 07:00 Intake Total 1555 ml Balance 1555 ml Intake IV Total 1555 ml General Appearance: Alert, Oriented X3, Cooperative, mild distress HEENT: Atraumatic, PERRLA Lungs: Clear to auscultation, Normal air movement Cardiovascular: Normal S1, Normal S2 Abdomen: Normal bowel sounds, Other (ARTI drain with serosanguineous fluid. Abdominal binder. Hypoactive bowel sounds) Musculoskeletal: Normal sensory function, Normal motor function Psych/Mental Status: Mental status NL, Mood NL Medications Current Medications Medications Dose Ordered Sig/Mehul Route Start Time Stop Time Status Last Admin Dose Admin Ondansetron HCl 4 mg Q4HP PRN IV 06/09/24 03:30 06/09/24 22:35 4 MG Morphine Sulfate 2 mg Q4HPRN PRN IV 06/09/24 03:30 06/09/24 22:36 2 MG Potassium Chloride/Dextrose/ Sod Cl 1,000 ml @ 100 mls/hr Q10H IV 06/09/24 13:15 06/09/24 17:30 100 MLS/HR Ceftriaxone Sodium 50 ml @ 100 mls/hr DAILY@09 IV 06/09/24 13:15 06/09/24 16:55 100 MLS/HR Metronidazole 100 ml @ 100 mls/hr Q8HR IV 06/09/24 14:00 06/10/24 05:38 100 MLS/HR Metoclopramide HCl 10 mg Q8HPRN PRN IV 06/09/24 14:00 Laboratory Results Laboratory Tests 06/10/24 06:33 Chemistry Test 06/10/24 06:33 Albumin 4.0 g/dL (3.2-4.8) Calcium Level 9.7 mg/dL (8.7-10.4) Total Protein 7.0 g/dL (5.7-8.2) LFT Test 06/10/24 06:33 Alanine Aminotransferase (ALT) 17 U/L (7-40) Alkaline Phosphatase 59 U/L (46-116) Aspartate Amino Transferase (AST) 17 U/L (13-40) Total Bilirubin 1.0 mg/dL (0.2-1.0) Urinalysis Test 06/09/24 06:00 Urine Color Light-yellow (Yellow) Urine Clarity Turbid (Clear) H Urine pH 7.0 (5.0-9.0) Urine Specific [place] 1.030 (1.001-1.035) Urine Protein Trace (Negative) H Urine Ketones 4+ (Negative) H Urine Blood Negative /uL (Negative) Urine Nitrite Negative (Negative) Urine Bilirubin Negative (Negative) Urine Urobilinogen Normal mg/dL (Negative) Urine Leukocyte Esterase 2+ /uL (Negative) Urine RBC 1 /hpf (0 - 4) Urine WBC 3 /hpf (0 - 5) Urine Squamous Epithelial Cells Few /hpf (<5) Urine Bacteria Few /hpf (None Seen) H Urine Mucus Few (None Seen) Urine Glucose 1+ mg/dL (Normal) H Labs and/or images reviewed: Labs reviewed by me, Image(s) reviewed by me Assessment/Plan Assessment/Plan Impression: -acute cholecystitis -obesity -leukocytosis, rule out sepsis Plan: Events: Patient is status post laparoscopic cholecystectomy. Patient was assessed in the recovery room. Hemodynamically stable. No signs of postoperative bleeding. -surgical consultation: Plans for surgery tomorrow -start antibiotic therapy with Rocephin and Flagyl -clear liquid diet -pain management -started IV hydration with potassium replacement -repeat labs in a.m. -reassess for discharge in am Total time spent with patient discussing and formulating plan of care: 35 minutes. This medical document was created using an electronic medical record system with [employer] dictation system. Although this document has been carefully reviewed, there may still be some phonetic and typographical errors. These areas are purely typographical due to imperfections of the software programs, and do not reflect any compromise in the patient's medical care. Plan discussed with: Patient, Other (RN) My Orders Orders - LAMAR BROOKS NP Procedure Category Date Status Time D5w/Sod Chl 0.45%/Kcl PHA 06/09/24 In Process 20meq 13:15 Ceftriaxone 1gm/50ml PHA 06/09/24 In Process D5w (Rocephin) 13:15 Metronidazole PHA 06/09/24 In Process 500mg/100ml (Flagyl 14:00 Metoclopramide PHA 06/09/24 In Process Injection (Reglan 14:00 Hydrocodone-Acet PHA 06/10/24 Verified 5/325mg Tab ([place] 12:00 Date of Service: Jun 10, 2024 Billing Provider: LAMAR BROOKS NP Common Visit Codes: [id number] INP/OBS CARE(HIGH) LAMAR BROOKS NP Jun 10, 2024 11:58
[2024-06-10] MEDS: LIDOCAINE 2% JELLY 11ml (GLYDO) ONE (13:28)
[2024-06-10] MEDS: SUCCINYLCHOLINE CHLORIDE 20 MG/ML 10ML VIAL IV ONE (13:28)
[2024-06-10] MEDS: ceFAZolin 2 GM/D5W100ml 100 ML IV ONE (13:28)
[2024-06-10] MEDS: KETOROLAC TROMETH 30 MG/ML 1ML VIAL IV ONE (13:29)
[2024-06-10] MEDS: ONDANSETRON HCL 4 MG/2 ML VIAL IV ONE (13:29)
[2024-06-10 13:30] VITALS: BP 108/76; PULSE 68; RESP 18; TEMP 97.6; O2SAT 96
[2024-06-10 17:00] VITALS: BP 121/81; PULSE 63; RESP 18; TEMP 98.2; O2SAT 97
[2024-06-10] MEDS ORDERED: PHENYLEPHRINE HCL 10 MG/ML VL IV ONE (17:55)
[2024-06-10 20:00] VITALS: PULSE 61; RESP 16; O2SAT 99
[2024-06-10 22:00] VITALS: BP 125/83; PULSE 61; RESP 16; TEMP 98.4; O2SAT 99
[2024-06-11] MEDS: HYDROcodone-ACET 5/325MG TAB PO PRN
[2024-06-11 00:56] VITALS: BP 117/78; PULSE 61; RESP 16; TEMP 98.9; O2SAT 97
[2024-06-11 05:00] VITALS: BP 102/60; PULSE 81; RESP 16; TEMP 98.5; O2SAT 97
[2024-06-11 07:03] LABS: Basophils # (auto) 0 10 ^3/uL (0-0.2); Basophils % (auto) 0.1 % (0.0-2.0); Eosinophils # (auto) 0 10 ^3/uL (0-0.8); Hematocrit 36.1 % (36.0-46.0); Hemoglobin 12.4 g/dL (12.2-16.2); Lymphocytes % (auto) 17.3 % (10.0-50.0); Mean Corpuscular Hemoglobin 31.7 pg (28.0-32.0); Mean Corpuscular Hgb Conc. 34.2 g/dL (32.0-36.0); Mean Corpuscular Volume 92.7 fL (80.0-100.0); Monocytes # (auto) 0.8 10 ^3/uL (0-1.3); Monocytes % (auto) 6.8 % (0.0-12.0); Neutrophils # (auto) 8.6 10 ^3/uL (1.6-8.6); Neutrophils % (auto) 75.8 % (37.0-80.0); Platelet Count (auto) 221 10^3/uL (140-450); Red Cell Distribution Width 12.6 % (11.8-14.3); White Blood Cell 11.3 10^3/uL (4.4-10.8)
[2024-06-11 09:00] VITALS: BP 98/53; PULSE 64; RESP 19; TEMP 98.3; O2SAT 97
--- NOTE | 2024-06-11 11:18 | DVHPN2 ---
Progress Note Date Seen: Jun 11, 2024 Medical Necessity Reason Pt with a Central, PICC or Fol: No Objective vital signs Vital Sign Date Time Temp Pulse Resp B/P (MAP) Pulse Ox O2 Delivery O2 Flow Rate FiO2 06/11/24 09:00 98.3 64 19 98/53 (68) 97 98.3 06/10/24 20:00 Room Air* 0 21 Total Intake and Output 06/10/24 06/10/24 06/11/24 15:00 23:00 07:00 Intake Total 150 ml 1580 ml 1005 ml Output Total 50 ml 25 ml Balance 100 ml 1580 ml 980 ml medications Current Medications Medications Dose Ordered Sig/Mehul Route Start Time Stop Time Status Last Admin Dose Admin Ondansetron HCl 4 mg Q4HP PRN IV 06/09/24 03:30 06/09/24 22:35 4 MG Morphine Sulfate 2 mg Q4HPRN PRN IV 06/09/24 03:30 06/09/24 22:36 2 MG Potassium Chloride/Dextrose/ Sod Cl 1,000 ml @ 100 mls/hr Q10H IV 06/09/24 13:15 06/10/24 09:15 100 MLS/HR Ceftriaxone Sodium 50 ml @ 100 mls/hr DAILY@09 IV 06/09/24 13:15 06/11/24 09:50 100 MLS/HR Metronidazole 100 ml @ 100 mls/hr Q8HR IV 06/09/24 14:00 06/11/24 06:11 100 MLS/HR Metoclopramide HCl 10 mg Q8HPRN PRN IV 06/09/24 14:00 Acetaminophen/ Hydrocodone Bitart 1 tab Q6HPRN PRN PO 06/10/24 12:00 06/11/24 10:23 1 TAB laboratory and microbiology Laboratory Tests 06/11/24 05:54 06/10/24 06:33 Test 06/10/24 06:33 Range/Units Serum Glucose 104 74-106 mg/dL Problem List/Assessment/Plan Problem List/Assessment/Plan 06/11/24 FEELS" MUCH BETTER", WOUNDS CLEAN AND WELL APPROXIMATED, ABDOMEN SOFT, NON DISTENDED, APPROPRIATELY TENDER, SHE WANTS TO GO HOME Plan discussed with: Patient RAVEN ZARATE MD Jun 11, 2024 11:18
[2024-06-11 13:00] VITALS: BP 110/73; PULSE 60; RESP 17; TEMP 98; O2SAT 97
[2024-06-11] MEDS ORDERED: AMOX500T86 PO (15:18)
[2024-06-11] MEDS ORDERED: HYDR-4902 PO (15:19)
[2024-06-11] MEDS ORDERED: DOCU-94 PO (15:19)
[2024-06-11 16:16] VITALS: TEMP 36.7
--- NOTE | 2024-06-11 16:49 | DVHDS2 ---
Discharge Summary Date of Admission Jun 09, 2024 at 03:25 Date of Discharge: Jun 11, 2024 Admitting Diagnosis Acute cholecystitis Labs/Diagnostic Data: Laboratory Results Test 06/11/24 05:54 06/10/24 17:46 06/10/24 06:33 06/09/24 09:51 White Blood Count 11.3 10^3/uL (4.4-10.8) Red Blood Count 3.90 10^6/uL (4.0-5.20) Hemoglobin 12.4 g/dL (12.2-16.2) Hematocrit 36.1 % (36.0-46.0) Mean Corpuscular Volume 92.7 fL (80.0-100.0) Mean Corpuscular Hemoglobin 31.7 pg (28.0-32.0) Mean Corpuscular Hemoglobin Concent 34.2 g/dL (32.0-36.0) Red Cell Distribution Width 12.6 % (11.8-14.3) Platelet Count 221 10^3/uL (140-450) Mean Platelet Volume 8.6 fL (6.9-10.8) Neutrophils (%) (Auto) 75.8 % (37.0-80.0) Lymphocytes (%) (Auto) 17.3 % (10.0-50.0) Monocytes (%) (Auto) 6.8 % (0.0-12.0) Eosinophils (%) (Auto) 0.0 % (0.0-7.0) Basophils (%) (Auto) 0.1 % (0.0-2.0) Neutrophils # (Auto) 8.6 10 ^3/uL (1.6-8.6) Lymphocytes # (Auto) 2.0 10 ^3/uL (0.4-5.4) Monocytes # (Auto) 0.8 10 ^3/uL (0-1.3) Eosinophils # (Auto) 0 10 ^3/uL (0-0.8) Basophils # (Auto) 0 10 ^3/uL (0-0.2) Nucleated Red Blood Cells 0.0 % Total Bilirubin 0.6 mg/dL (0.2-1.0) Sodium Level 141 mmol/L (136-145) Potassium Level 3.6 mmol/L (3.5-5.1) Chloride Level 109 mmol/L (98-107) Carbon Dioxide Level 22 mmol/L (20-31) Anion Gap 10 (5-15) Blood Urea Nitrogen < 5 mg/dL (9-23) Creatinine 0.56 mg/dL (0.550-1.02) Glomerular Filtration Rate Calc 126 mL/min (>90) BUN/Creatinine Ratio 8.9 (10.0-20.0) Serum Glucose 104 mg/dL (74-106) Calcium Level 9.7 mg/dL (8.7-10.4) Aspartate Amino Transferase (AST) 17 U/L (13-40) Alanine Aminotransferase (ALT) 17 U/L (7-40) Alkaline Phosphatase 59 U/L (46-116) Total Protein 7.0 g/dL (5.7-8.2) Albumin 4.0 g/dL (3.2-4.8) Prothrombin Time 11.3 sec (9.3-11.8) Prothrombin Time INR 1.07 (0.9-1.15) Activated Partial Thromboplast Time 25.7 SEC (24.5-34.5) Test 06/09/24 06:00 06/08/24 23:10 Urine Color Light-yellow (Yellow) Urine Clarity Turbid (Clear) Urine pH 7.0 (5.0-9.0) Urine Specific [place] 1.030 (1.001-1.035) Urine Protein Trace (Negative) Urine Ketones 4+ (Negative) Urine Blood Negative /uL (Negative) Urine Nitrite Negative (Negative) Urine Bilirubin Negative (Negative) Urine Urobilinogen Normal mg/dL (Negative) Urine Leukocyte Esterase 2+ /uL (Negative) Urine RBC 1 /hpf (0 - 4) Urine WBC 3 /hpf (0 - 5) Urine Squamous Epithelial Cells Few /hpf (<5) Urine Bacteria Few /hpf (None Seen) Urine Mucus Few (None Seen) Urine Glucose 1+ mg/dL (Normal) Lipase 50 U/L (12-53) Beta HCG, Quantitative 1.6 mIU/mL (1.5-4.2) Other Laboratory Tests 06/11/24 05:54 06/10/24 06:33 Brief Hx & Hospital Course: History of Present Illness 29-year-old female presents for evaluation of abdominal pain. Patient with a history of cholelithiasis presents with a three day history of sharp nonradiating epigastric pain with associated nausea and vomiting. Denies diarrhea, fever or chills. No other acute complaints were reported. Course of hospitalization: Patient has CT scan of the abdomen and pelvis as well as gallbladder ultrasound which confirmed the patient having cholelithiasis with cholecystitis. Patient had surgery with Dr. Barber yesterday, laparoscopic cholecystectomy. Patient has positive bowel sounds today, minimal serosanguineous output to a ARTI drain as able to tolerate oral intake without any issues. Postop labs are benign. She will follow up with surgery as an outpatient 10 days after discharge. She will be continued on antibiotic therapy with Augmentin 500 mg p.o. b.i.d. for 5 days, as well as being prescribed Irwin 5/325 for pain and Colace for constipation. She will also be made a follow up appointment with the discharge clinic in 1 week. She is agreeable with discharge plan. All questions answered. Physical examination General: Alert and Oriented x3. No acute distress. Well-nourished. Eyes: EOMI. Anicteric. HENT: Moist mucous membranes. Lungs: Clear to auscultation bilaterally. No accessory muscle use. Cardiovascular: Regular rate and rhythm. No murmur. No JVD. Abdomen: Soft, non-tender and non-distended. No palpable masses. ARTI with serosanguineous fluid. Surgical puncture sites dry and intact Extremities: No edema. Non-tender. Skin: No rashes or lesions. Warm. Neurologic: No focal neurological deficits. CN II-XII grossly intact, but not individually tested. Psychiatric: Cooperative. Appropriate mood and affect. Total time spent with patient discussing and formulating plan of care: 35 minutes. This medical document was created using an electronic medical record system with [id number] dictation system. Although this document has been carefully reviewed, there may still be some phonetic and typographical errors. These areas are purely typographical due to imperfections of the software programs, and do not reflect any compromise in the patient's medical care. Consults/Reason for consult Surgery: Cholecystitis Operations or Procedures 06/10/2024: Laparoscopic cholecystectomy Condition at Discharge: Fair Final Diagnosis/Problems List Cholecystitis Secondary Diagnosis: -obesity -leukocytosis, ruled out sepsis, sirs response without organ dysfunction Discharge Disposition: Home Discharge Instruct/Medications Diet: Regular Activity: No Restrictions, As Tolerated Follow Up/Referral: Discharge Clinic in one week Surgical follow up in 10 days Medications: Augmentin 500 mg p.o. b.i.d. x5 days Irwin 5/325 q.6 hours as needed for giphtfrn-it-gdkusc pain Colace 100 mg p.o. b.i.d. p.r.n. constipation Discharge Statement: "Patient was advised to return to the ER or call 911 if any headaches, dizziness, shortness of breath, chest pain, abdominal pain, bleeding, fevers, or worsening of medical condition. Patient was counseled about treatment plan, medications, possible side effects, patientverbalized understanding. All questions were answered to the best of my ability. This discharge took greater then 30 minutes in planning, reviewing documentation, counseling the patient, and discussing with other team members." ASSESSMENT ASSESSMENT Assessment Cholecystitis Date of Service: Jun 11, 2024 Billing Provider: LAMAR BROOKS NP Common Visit Codes: [id number] DISCH DAY >30min LAMAR BROOKS NP Jun 11, 2024 16:49
[2024-06-11 17:00] VITALS: BP 104/64; PULSE 66; RESP 19; TEMP 98.1; O2SAT 98
[2024-06-12 09:42] LABS: Hepatitis B Surface Antigen Negative (Negative); Hepatitis C Antibody Negative (Negative)
== END 2024-06-11 17:56 | disposition home or self-care (01) | DRG 263 ==
LOC: ER 22:54 → OVERFLOW 06-09 03:25 → WEST WING 06-10 12:41
PROVIDERS: ADMIT Nurse Practitioner; ATTEND Nurse Practitioner Acute Care
PROC: 0FT44ZZ Resection of Gallbladder, Percutaneous Endoscopic Approach (ICD-10-PCS; principal; 2024-06-10 07:30)
DX: K80.00 Calculus of gallbladder with acute cholecystitis without obstruction (principal); R65.10 Systemic inflammatory response syndrome (SIRS) of non-infectious origin without acute organ dysfunction; E66.01 Morbid (severe) obesity due to excess calories; K59.00 Constipation, unspecified; Z79.899 Other long term (current) drug therapy; Z68.35 Body mass index [BMI] 35.0-35.9, adult
CPT/HCPCS: 36415; 80053; 81001; 82247; 83690; 84702; 85025; 85610; 85730; 86803; 86850; 86900; 86901; 87086; 87340; G0378; J0330; J1100; J2003; J2250; J2405; J2543; J2704; J3490; Q0162

== ENCOUNTER 2024-11-08 19:11 | Emergency (ER) | payer MEDICAID ==
[~2024-11-08] VITALS: Ht 157.5 cm; Wt 81.0 kg
[~2024-11-08 19:11] MED LIST: AMOX500T86 PO; DOCU-94 PO; HYDR-4902 PO
--- NOTE | 2024-11-08 19:57 | ED.PDOC ---
History of Present Illness HPI Comments 29 y/o F presents with c/o nonradiating, epigastric abdominal pain, nausea, vomiting, and subjective fever, today. Patient reports ongoing symptoms following initial onset at 0500, this morning. She endorses on pain being sharp and burning in quality and her vomitus being biliary. Denies any blood in her vomit, diarrhea, constipation, chest pain, fever, chills, urinary symptoms, or other associated symptoms at this time. Patient states the pain feels like pain she had when her gallbladder was present. Patient had her gallbladder removed two years ago. Chief Complaint: Abdominal Pain Time Seen by MD: 21:50 Primary Care Provider: NONE Reviewed Notes: Nurses Notes, Medications, Allergies Allergies: Coded Allergies: NO KNOWN ALLERGIES (Unverified , 07/06/21) Home Meds Active Scripts Docusate Sodium (Colace) 100 Mg Cap, 1 CAP PO BID for 10 Days, #30 CAP Prov:LAMAR BROOKS NP 06/11/24 Hydrocodone-Acetaminophen (Hydrocodone Bitartrate/AC 5-325 mg) 1 Tab Tab, 1 TAB PO Q6H for 4 Days, #16 TAB Prov:LAMAR BROOKS NP 06/11/24 Amoxicillin & Pot Clavulanate (Augmentin) 500 Mg Tab, 1 TAB PO BID for 5 Days, #10 TAB Prov:LAMAR BROOKS NP 06/11/24 Information Source: Patient Mode of Arrival: Ambulatory Severity: Moderate Timing: Hours Duration: Since onset Prehospital treatment: None Past Medical History PAST MEDICAL HISTORY: Gallstones Surgical History: 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 Family History Family History: Unknown Social History Smoker: Non-Smoker Alcohol: Occasionally Drugs: Denies Drug Use Lives In: Home Constitutional: denies: chills, diaphoresis, fatigue, fever, malaise, sweats, weakness, others EENTM: denies: blurred vision, double vision, ear bleeding, ear discharge, ear drainage, ear pain, ear ringing, eye pain, eye redness, hearing loss, mouth pain, mouth swelling, nasal discharge, nose bleeding, nose congestion, nose pain, photophobia, tearing, throat pain, throat swelling, voice changes, others Respiratory: denies: cough, hemoptysis, orthopnea, SOB at rest, shortness of breath, SOB with excertion, stridor, wheezing, others Cardiovascular: denies: chest pain, dizzy spells, diaphoresis, Dyspnea on exertion, edema, irregular heart beat, left arm pain, lightheadedness, palpitations, PND, syncope, others Gastrointestinal: reports: abdominal pain, nausea, vomiting; denies: abdomen distended, blood streaked bowels, constipated, diarrhea, dysphagia, difficulty swallowing, hematemesis, melena, poor appetite, poor fluid intake, rectal bleeding, rectal pain, others Genitourinary: denies: abnormal vagina bleeding, burning, dyspareunia, dysuria, flank pain, frequency, hematuria, incontinence, pain, , vagina discharge, urgency, others Neurological: denies: dizziness, fainting, headache, left sided numbness, left sided weakness, numbness, paresthesia, pre-existing deficit, right sided numbness, right sided weakness, seizure, speech problems, tingling, tremors, weakness, others Musculoskeletal: denies: back pain, gout, joint pain, joint swelling, muscle pain, muscle stiffness, neck pain, others Integumetry: denies: bruises, change in color, change in hair/nails, dryness, laceration, lesions, lumps, rash, wounds, others Allergic/Immunocompromised: denies: Difficulty Healing, Frequent Infections, Hives, Itching, others Hematologic/Lymphatic: denies: anemia, blood clots, easy bleeding, easy bruising, swollen glands, others Endocrine: denies: excessive hunger, excessive sweating, excessive thirst, excessive urination, flushing, intolerance to cold, intolerance to heat, unexplained weight gain, unexplained weight loss, others Psychiatric: denies: anxiety, bipolar disorder, depression, hopeless, panic disorder, schizophrenia, sleepless, suicidal, others All Other Systems: Reviewed and Negative (as per HPI) Physical Exam General Appearance: Moderate Distress (Moderate distress due to belly pain concerns.), Obese HEENT: Normal ENT Inspection, Pharynx Normal, TMs Normal Neck: Full Range of Motion, Non-Tender, Normal, Normal Inspection Respiratory: Chest Non-Tender, Lungs Clear, No Accessory Muscle Use, No Respiratory Distress, Normal Breath Sounds Cardiovascular: No Edema, No JVD, No Murmur, No Gallop, Normal Peripheral Pulses, Regular Rate/Rhythm Breast Exam: Deferred Gastrointestinal: Other (Diffuse nonspecific epigastric tenderness to palpation throughout extending bilaterally. Difficult to assess due to body habitus. Abdomen was reasonably soft. No pulsatile masses.) Genitalia: Deferred Pelvic: Deferred Rectal: Deferred Extremities: No calf tenderness, Normal capillary refill, Normal inspection, Normal range of motion, Non-tender, No pedal edema Neurologic: Alert, No Motor Deficits, Normal Affect, Normal Mood, No Sensory Deficits Cerebellar Function: Normal Reflexes: Normal Skin: Dry, Normal Color, Warm Lymphatic: No Adenopathy Was a procedure done? Was a procedure done?: No Differential Dx Considerations may include: gastritis, gastroenteritis, PUD, GERD, UTI, among others X-Ray, Labs, Meds, VS Vital Signs Date Time Temp Pulse Resp B/P (MAP) Pulse Ox O2 Delivery O2 Flow Rate FiO2 11/08/24 19:47 99.3 108 18 122/86 (98) 98 99.3 11/08/24 19:47 Room Air 11/08/24 19:47 99.3 108 18 122/86 (98) 98 99.3 Lab Test 11/08/24 20:11 11/08/24 19:46 Range/Units Urine Color Yellow Yellow Urine Clarity Clear Clear Urine pH 6.5 5.0-9.0 Urine Specific [place] 1.036 H 1.001-1.035 Urine Protein 1+ H Negative Urine Ketones 4+ H Negative Urine Blood 3+ H Negative /uL Urine Nitrite Negative Negative Urine Bilirubin Negative Negative Urine Urobilinogen 8 H Negative mg/dL Urine Leukocyte Esterase Negative Negative /uL Urine RBC 130 0 - 4 /hpf Urine Microscopic WBC 2 0-5 /HPF Urine Squamous Epithelial Cells Few <5 /hpf Urine Bacteria None seen None Seen /hpf Urine Mucus Few None Seen Urine Glucose Normal Normal mg/dL Urine Test Negative Negative White Blood Count 8.1 4.4-10.8 10^3/uL Red Blood Count 4.89 4.0-5.20 10^6/uL Hemoglobin 15.1 12.2-16.2 g/dL Hematocrit 45.0 36.0-46.0 % Mean Corpuscular Volume 92.0 80.0-100.0 fL Mean Corpuscular Hemoglobin 30.9 28.0-32.0 pg Mean Corpuscular Hemoglobin Concent 33.6 32.0-36.0 g/dL Red Cell Distribution Width 13.4 11.8-14.3 % Platelet Count 280 140-450 10^3/uL Mean Platelet Volume 7.4 6.9-10.8 fL Neutrophils (%) (Auto) 89.9 H 37.0-80.0 % Lymphocytes (%) (Auto) 6.9 L 10.0-50.0 % Monocytes (%) (Auto) 2.8 0.0-12.0 % Eosinophils (%) (Auto) 0.3 0.0-7.0 % Basophils (%) (Auto) 0.1 0.0-2.0 % Neutrophils # (Auto) 7.3 1.6-8.6 10 ^3/uL Lymphocytes # (Auto) 0.6 0.4-5.4 10 ^3/uL Monocytes # (Auto) 0.2 0-1.3 10 ^3/uL Eosinophils # (Auto) 0 0-0.8 10 ^3/uL Basophils # (Auto) 0 0-0.2 10 ^3/uL Nucleated Red Blood Cells 0.0 % Sodium Level 140 136-145 mmol/L Potassium Level 3.6 3.5-5.1 mmol/L Chloride Level 106 98-107 mmol/L Carbon Dioxide Level 25 20-31 mmol/L Anion Gap 9 5-15 Blood Urea Nitrogen 12 9-23 mg/dL Creatinine 0.55 0.550-1.02 mg/dL Glomerular Filtration Rate Calc 126 >90 mL/min BUN/Creatinine Ratio 21.8 H 10.0-20.0 Serum Glucose 97 74-106 mg/dL Calcium Level 9.2 8.7-10.4 mg/dL Total Bilirubin 1.3 H 0.2-1.0 mg/dL Aspartate Amino Transferase (AST) 18 13-40 U/L Alanine Aminotransferase (ALT) 19 7-40 U/L Alkaline Phosphatase 64 46-116 U/L Troponin I High Sensitivity 4 </=34 ng/L B-Type Natriuretic Peptide 8.61 0-100 pg/mL Total Protein 7.3 5.7-8.2 g/dL Albumin 4.5 3.2-4.8 g/dL Lipase 36 12-53 U/L Current Medications Medications (Trade) Dose Ordered Sig/Mehul Route Start Time Stop Time Status Last Admin Dicyclomine HCl (Bentyl Injection) 20 mg ONCE ONCE IM 11/08/24 19:45 11/08/24 19:46 DC 11/08/24 20:39 Ondansetron HCl (Zofran) 4 mg ONCE ONCE IM 11/08/24 19:45 11/08/24 19:46 DC 11/08/24 20:39 X-Ray, Labs, Meds, VS Comment All studies performed the ED were evaluated by me personally. Serum and urinalysis was relatively unremarkable. Patient did have some red blood cell deposition due to her current menses. CT of the abdomen and pelvis was unremarkable for any concerning findings. Advised patient that if her symptoms continue, she may need to follow up with her primary care provider for a GI referral and evaluation. Time of 1ST Reevaluation: 21:36 Reevaluation 1ST: Improved Consultation: PCP, GI Patient Education/Counseling: Diagnosis, Treatment Family Education/Counseling: Diagnosis, Treatment, No Family Present Departure 1 Departure Time of Disposition: 21:36 Impression: Primary Impression: Abdominal pain Disposition: HOME / SELF CARE / HOMELESS Condition: Stable Additional Instructions: Advised patient utilize medication as needed. If the symptoms continue for more than in the next few days, patient will need to follow up with the primary care provider for GI referral and evaluation. e-Prescriptions Ondansetron Odt 4MG Tab (ZOFRAN PO) 4 Mg Tb 4 MG PO Q6HP PRN, #15 TAB ODT TAB-DISSOLVE IN MOUTH, THEN SWALLOW Prov: ANTHONY SALES 11/08/24 Hydrocodone-Acetaminophen (Hydrocodone Bitartrate/AC 5-325 mg) 1 Tab Tab 1 TAB PO Q6HP PRN, #12 TAB Prov: ANTHONY SALES 11/08/24 Discharged With: Self, Friend Critical Care Note Critical Care Time?: No Stability Stability form required: No Heart Score Heart Score: Heart Score Response (Comments) Value History N/A 0 EKG N/A 0 Age N/A 0 Risk Factors N/A 0 Troponin N/A 0 Total 0 I personally scribed for ANTHONY SALES ([email or web address]) on 11/08/24 at 19:57. Electronically submitted by Bulmaro Carlos ([email or web address]). ANTHONY SALES Nov 08, 2024 19:57
[2024-11-08 19:59] LABS: Basophils # (auto) 0 10 ^3/uL (0-0.2); Basophils % (auto) 0.1 % (0.0-2.0); Eosinophils # (auto) 0 10 ^3/uL (0-0.8); Eosinophils % (auto) 0.3 % (0.0-7.0); Hemoglobin 15.1 g/dL (12.2-16.2); Lymphocytes # (auto) 0.6 10 ^3/uL (0.4-5.4); Lymphocytes % (auto) 6.9 % (10.0-50.0); Mean Corpuscular Hemoglobin 30.9 pg (28.0-32.0); Mean Corpuscular Hgb Conc. 33.6 g/dL (32.0-36.0); Monocytes # (auto) 0.2 10 ^3/uL (0-1.3); Monocytes % (auto) 2.8 % (0.0-12.0); Neutrophils # (auto) 7.3 10 ^3/uL (1.6-8.6); Neutrophils % (auto) 89.9 % (37.0-80.0); Platelet Count (auto) 280 10^3/uL (140-450); Red Blood Cells 4.89 10^6/uL (4.0-5.20); Red Cell Distribution Width 13.4 % (11.8-14.3); White Blood Cell 8.1 10^3/uL (4.4-10.8)
[2024-11-08 20:12] LABS: Urine Bacteria None Seen /hpf (None Seen)
[2024-11-08 20:24] LABS: Alanine Aminotransferase 19 U/L (7-40); Albumin 4.5 g/dL (3.2-4.8); Alkaline Phosphatase 64 U/L (46-116); Anion Gap 9 (5-15); Aspartate Aminotransferase 18 U/L (13-40); BUN/Creatinine Ratio 21.8 (10.0-20.0); Blood Urea Nitrogen 12 mg/dL (9-23); Calcium 9.2 mg/dL (8.7-10.4); Carbon Dioxide 25 mmol/L (20-31); Chloride 106 mmol/L (98-107); Glucose 97 mg/dL (74-106); Lipase 36 U/L (12-53); Potassium 3.6 mmol/L (3.5-5.1); Sodium 140 mmol/L (136-145); Total Protein 7.3 g/dL (5.7-8.2)
[2024-11-08 20:25] LABS: Bilirubin, Total 1.3 mg/dL (0.2-1.0)
[2024-11-08 20:30] LABS: Urine Blood 3+ /uL (Negative); Urine Clarity Clear (Clear); Urine Color Yellow (Yellow); Urine Mucus FEW (None Seen); Urine Protein, UAD 1+ (Negative); Urine Specific Gravity 1.036 (1.001-1.035); Urine Squamous Epithelial Cell FEW /hpf (<5); Urine Urobilinogen 8 mg/dL (Negative); Urine WBC 2 /HPF (0-5); Urine pH 6.5 (5.0-9.0)
[2024-11-08] MEDS: DICYCLOMINE HCL (10MG/ML) 2 ML AMPULE IM ONE (20:39)
[2024-11-08] MEDS: ONDANSETRON HCL 4 MG/2 ML VIAL IM ONE (20:39)
--- NOTE | 2024-11-08 21:25 | DVH ---
Exam: CT CT AB PEL WO CON-NO ORAL OR IV History: Abdominal pain Comparison Study: None available at time of dictation. TECHNIQUE: Multidetector CT of the abdomen was performed from lung bases to pubic symphysis. Imaging was performed without IV contrast. Axial, coronal and sagittal multiplanar reformats were obtained fr om the axial data set by the technologist. Radiation Dose Information: CT Dose: CTDI volume is 13.49 mGy. Dose-length product is 773.8 mGy*cm FINDINGS: Evaluation of solid organs is limited due to lack of intravenous contrast use. Findings: Lung Bases: No acute or significant lung base finding. Normal heart size. No pleural or pericardial effusion. Liver: The liver is normal in size. No focal lesions. Gallbladder and Biliary Tree: Gallbladder has been surgically removed. Spleen: Unremarkable Pancreas: The pancreas is grossly normal in appearance. Adrenal Glands: Unremarkable Kidneys: Kidneys are grossly normal without calculi or hydronephrosis. Bladder: Grossly unremarkable for degree of distention. Bowel: The stomach is grossly normal in appearance. Small bowel and colon are normal in caliber and d istribution. The appendix is not visualized; however, no secondary findings of acute appendicitis id entified. Ascites: Absent Lymphadenopathy: No mesenteric, retroperitoneal or periportal lymphadenopathy. Abdominal Wall and Mesentery: Unremarkable. Vasculature: The visualized abdominal aorta is normal in size and caliber. Evaluation of abdominal a nd pelvic vessels is limited due to lack of intravenous contrast. Pelvic Organs: 5 cm hypodense mass in the left adnexa. If ovarian torsion is of clinical concern rec ommend pelvic ultrasound with Doppler. Musculoskeletal: No aggressive focal bony lesions, acute fractures or dislocation. Soft tissues: Unremarkable IMPRESSION: 1. 5 cm hypodense mass left adnexa. If ovarian torsion is of clinical concern recommend pelvic ultra sound. 2. Patient is status post cholecystectomy. 3. No findings of bowel obstruction 4. No nephrolithiasis or hydronephrosis. Radiation optimization: All CT scans at this facility use at least one of these dose optimization miguel hniques: automated exposure control mA and/or kV adjustment per patient size (includes targeted exam s where dose is matched to clinical indication) or iterative reconstruction. HS:Y
[2024-11-08] MEDS ORDERED: ZOFR4T PO (21:37)
[2024-11-08] MEDS ORDERED: HYDR-4902 PO (21:37)
[2024-11-08 21:51] VITALS: BP 119/76; PULSE 92; RESP 16; TEMP 97.9; O2SAT 97
[2024-11-08] MEDS: HYDROcodone-ACET 10/325MG TAB PO ONE (21:56)
== END 2024-11-08 21:59 | disposition home or self-care (01) ==
LOC: ER 19:11
DX: R10.13 Epigastric pain (principal); R11.2 Nausea with vomiting, unspecified; R50.9 Fever, unspecified; R06.02 Shortness of breath; Z90.49 Acquired absence of other specified parts of digestive tract
CPT/HCPCS: 36415; 74176; 80053; 81001; 81025; 83690; 83880; 84484; 85025; 96372; 99285; J0500; J2405

== ENCOUNTER → 2025-03-09 | Day surgery (SDC) | payer MEDICAID ==
[2025-03-05 14:05] LABS: Hematocrit 42.1 % (36.0-46.0); Hemoglobin 14.2 g/dL (12.2-16.2); Mean Corpuscular Hemoglobin 31.1 pg (28.0-32.0); Mean Corpuscular Volume 92.1 fL (80.0-100.0); Nucleated Red Blood Cells % 0.1 %
[2025-03-05 14:11] LABS: Urine Protein, UAD Negative (Negative)
[2025-03-05 14:25] LABS: INR 0.95 (0.9-1.15); Partial Thromboplastin Time 26.8 SEC (24.5-34.5); Prothrombin Time 10.1 sec (9.3-11.8)
[2025-03-05 14:45] LABS: Alanine Aminotransferase 18 U/L (7-40); Albumin 4.3 g/dL (3.2-4.8); Anion Gap 9 (5-15); BUN/Creatinine Ratio 16.7 (10.0-20.0); Blood Urea Nitrogen 11 mg/dL (9-23); Calcium 9.1 mg/dL (8.7-10.4); Carbon Dioxide 26 mmol/L (20-31); Chloride 105 mmol/L (98-107); Glucose 98 mg/dL (74-106); Potassium 3.9 mmol/L (3.5-5.1); Sodium 140 mmol/L (136-145); Total Protein 7.2 g/dL (5.7-8.2)
[2025-03-05 14:46] LABS: Alkaline Phosphatase 40 U/L (46-116); Bilirubin, Total 0.4 mg/dL (0.2-1.0)
[~2025-03-09] VITALS: Ht 157.5 cm; Wt 77.1 kg
[~2025-03-09] MED LIST changes: -AMOX500T86 PO; -DOCU-94 PO; -HYDR-4902 PO; +HYDROmorphone HCL 2 MG/ML VL/or syr IV PRN; +KETOROLAC TROMETH 30 MG/ML 1ML VIAL IV ONE; +KETOROLAC TROMETH 30 MG/ML 1ML VIAL ONE; +MIDAZOLAM HCL 2MG/2ML 2ml VIAL (1mg/ml) IV PRN; +MIDAZOLAM HCL 2MG/2ML 2ml VIAL (1mg/ml) ONE; +MORPHINE SULFATE 4 MG/ML SYR/VIAL IV PRN; +ONDANSETRON HCL 4 MG/2 ML VIAL IV PRN; +ONDANSETRON HCL 4 MG/2 ML VIAL ONE; +POVIDONE IODINE 10 % TOPICAL OINT 30GM TOP ONE; +PROPOFOL 10 MG/ML 20 ML IV ONE; +fentaNYL CITRATE 100 MCG/2 ML VL ONE; +hydrALAZINE HCL 20 MG/ML VL IV PRN
[2025-03-09] MEDS: ceFAZolin 2 GM/D5W50ml 50 ML IV ONE (09:15)
[2025-03-09] MEDS: BUPIVACAINE 0.25% INJ 50ML VIAL ONE (09:40)
[2025-03-09] MEDS: LIDOCAINE W/ EPINEPHRINE 1% 20ML VIAL ONE (09:40)
[2025-03-09 09:54] VITALS: TEMP 98.1
--- NOTE | 2025-03-09 10:03 | DVHOP2 ---
Operative Report - 2 Report Details Date: 03/09/25 Preop Diagnosis: left upper back mass Postop Diagnosis: left upper back lipoma Surgeon: Dr. Tommy Carlson, Anesthesiologist: Dr. Soto Anesthesia: Mac Consent: The patient was informed of the risks and benefits of the procedure. These include but are not limited to complications of anesthesia, postoperative infection, incomplete relief of symptoms, recurrence of symptoms, damage to blood vessels, nerves and tendons, deep venous thrombosis, pulmonary embolism and possible need for repeat surgery in the future. Name of Procedure Performed excision of left upper back mass Procedure Details Procedure Details: Under the supervision of Dr. Barber and under adequate anesthesia the patient was placed in a right lateral position. The left upper back was prepped and draped in a sterile fashion. Prior to incision the area was infiltrated with 1:1 0.25% Marcaine and 1% lidocaine a horizontal incision was made to excise the lipoma. The wound was than irrigated with normal saline and the wound was closed with 0-Prolene sutures. Dressings were applied. patient tolerated the procedure well. Sponge, needle and blade counts were correct at termination of procedure. Patient transferred to recovery with out incident. Specimen: lipoma Condition Good Disposition Home MARY CARLSON NP Mar 09, 2025 10:03
[2025-03-09 10:20] VITALS: BP 117/71; PULSE 72; RESP 20; O2SAT 98
== END | disposition home or self-care (01) ==
LOC: SUR 08:07 → EDUNIT# 12:00
PROVIDERS: ATTEND Surgery
DX: D17.1 Benign lipomatous neoplasm of skin and subcutaneous tissue of trunk (principal)
CPT/HCPCS: 21931; 36415; 80053; 81001; 81025; 85025; 85610; 85730; 88305; J0690; J1100; J1885; J2250; J2405; J2704; J3010; J3490